=== PATIENT | female | born 1940 | race Caucasian/White ===

== ENCOUNTER 2017-05-25 18:18 | Emergency (ER) | payer MEDICARE, OTHER ==
--- NOTE | 2017-05-25 18:49 | ER PHYSICIAN DOCUMENTATION ---
Physician Documentation [facility] Name:Edyta Ortega Age:76 yrs Sex:Female :1940 Arrival Date:05/25/2017 Time:18:18 Bed1 Private MD: Jeremiah Tian Disposition: 05/25/17 18:39 Discharged to Home/Self Care. Impression: Hand Hematoma. - Condition is Good. - Discharge Instructions: HEMATOMA. - Medical Reconciliation form form. - Follow up: Private Physician; When: As needed; Reason: Continuance of care. - Problem is new. - Symptoms have improved. HPI: 05/25 18:33 This 76 yrs old Female presents to ER via Private Vehicle with complaints of jm Hand Injury - R HAND. 18:33 The patient or guardian reports pain, swelling. The complaints affect the right hand jm diffusely. Context: resulted from sat on hand. . Onset: The symptom(s)/episode began/occurred just prior to arrival. Historical: - Allergies: Codeine; - Home Meds: 1. atorvastatin oral 2. fenofibrate oral 3. Metformin Oral 4. sertraline oral 5. Aspirin Oral - PMHx: PRE DIABETES; Hypertension; DEPRESSION; - PSHx: Appendectomy; - Tetanus: < 10 years. - Ebola Screening: : Patient negative for fever greater than or equal to 101.5 degrees Fahrenheit, and additional compatible Ebola Virus Disease symptoms. - Immunization history: Pneumococcal vaccine is up to date, Flu Vaccine < 1 year. - Social history: Smoking status: Patient states was never smoker of tobacco. ROS: 18:34 MS/extremity: Positive for swelling. jm 18:34 Skin: Positive for swelling. Exam: 18:34 Constitutional: The patient appears alert, awake. jm 18:34 Musculoskeletal/extremity: Extremities: grossly normal except: noted in the right hand: swelling, ROM: intact in all extremities, Pulses: are normal with no appreciated deficits. 18:34 Skin: cellulitis, is not appreciated, injury, hematoma to the R dorsum of hand. . 18:34 Neuro: Mentation: is normal, Memory: is normal. Vital Signs: 18:35 BP 167 / 107; Pulse 88; Resp 17; Temp 98.0(TE); Pulse Ox 93% on R/A; Weight 64.41 kg; rh Height 5 ft. 5 in. (165.10 cm); Pain 2/10; 18:47 BP 145 / 88; rh 18:35 Body Mass Index 23.63 (64.41 kg, 165.10 cm) rh MDM: 18:20 Patient medically screened. laila 18:38 Differential diagnosis: contusion, hematoma. Data reviewed: vital signs, nurses notes, jm radiologic studies, and as a result, I will discharge patient. Test interpretation: by ED physician or midlevel provider: plain radiologic studies. Counseling: I had a detailed discussion with the patient and/or guardian regarding: the historical points, exam findings, and any diagnostic results supporting the discharge/admit diagnosis. ED course: Pt w large hand hematoma but no fx. WILFREDO wrap placed around the hematoma. . 05/25 21:59 Order name: HAND; [address] [place] [id number] EDNY 05/25 18:31 Order name: ORTHO: Ice Pack; Complete Time: 18:31 rh Dispensed Medications: No medications were administered Signatures: Jeremiah Mo MD MD jm Hofsess, Rachel
--- NOTE | 2017-05-25 18:49 | ER NURSING DOCUMENTATION ---
Nurse's Notes [facility] Name:Edyta Ortega Age:76 yrs Sex:Female :1940 Arrival Date:05/25/2017 Time:18:18 Bed1 Private MD: Diagnosis:Hand Hematoma Presentation: 05/25 18:21 Transition of care: patient was not received from another setting of care. Notified ED nf Physician of patient's arrival and CC Chepe Beckham notified. 18:21 Acuity: OLGA 4 nf 18:21 Method Of Arrival: Private Vehicle nf 18:32 Presenting complaint: Patient states: Pt's sat on her hand, her hand was rh resting on the arm of a chair. Triage Assessment: 18:34 General: Appears in no apparent distress, Behavior is cooperative. Pain: Complains of rh pain in dorsum of right hand. Musculoskeletal: Circulation, motion, and sensation intact Range of motion intact in all extremities. Injury Description: HEMATOMA TO THE RIGHT HAND. Historical: - Allergies: Codeine; - Home Meds: 1. atorvastatin oral 2. fenofibrate oral 3. Metformin Oral 4. sertraline oral 5. Aspirin Oral - PMHx: PRE DIABETES; Hypertension; DEPRESSION; - PSHx: Appendectomy; - Tetanus: < 10 years. - Ebola Screening: : Patient negative for fever greater than or equal to 101.5 degrees Fahrenheit, and additional compatible Ebola Virus Disease symptoms. - Immunization history: Pneumococcal vaccine is up to date, Flu Vaccine < 1 year. - Social history: Smoking status: Patient states was never smoker of tobacco. Screenin:35 Infectious Disease Risk None. Abuse screen: Denies threats or abuse. Denies injuries rh from another. Nutritional screening: No deficits noted. Assessment: 18:35 See Triage Assessment done by same RN. rh Vital Signs: 18:35 BP 167 / 107; Pulse 88; Resp 17; Temp 98.0(TE); Pulse Ox 93% on R/A; Weight 64.41 kg; rh Height 5 ft. 5 in. (165.10 cm); Pain 2/10; 18:47 BP 145 / 88; rh 18:35 Body Mass Index 23.63 (64.41 kg, 165.10 cm) rh ED Course: 18:19 Patient arrived in ED. ds 18:20 Jeremiah Mo MD is Attending Physician. jm 18:21 Triage completed. nf 18:28 Notified ED Physician of patient's arrival and chief complaint. Dr. Mo notified. Affected limb iced. Affected limb elevated. 18:31 Jimena Dudley is Primary Nurse. 18:36 Valuables Remains with patient Patient has correct armband on for positive rh identification. Bed in low position. Call light in reach. Administered Medications: No medications were administered Outcome: 18:39 Discharge ordered by . 18:47 Discharged to home ambulatory. 18:47 Condition: stable 18:47 Discharge Assessment: Patient awake, alert and oriented x 3. No cognitive and/or functional deficits noted. Patient verbalized understanding of disposition instructions. 18:47 Discharge instructions given to patient, Instructed on discharge instructions, follow up and referral plans. [facility] 18:49 Patient left the ED. 05/26 19:24 Discharge F/U Call: Unable to reach: no answer [email or web address] Signatures: Ana Landers RN RN nf Srot, Polly, Reg Reg Jeremiah Huddleston MD MD jm Kruger, Meg RN RN mk2 Jimena Dudley
--- NOTE | 2017-05-25 20:06 | RADIOLOGY REPORT ---
Three views of the left hand demonstrate no displaced fracture or dislocation. Scattered degenerative joint disease is noted. IMPRESSION: No displaced injury is identified. If clinically indicated, further evaluation and/or follow-up may be of benefit. [facility]
== END 2017-05-25 18:49 | disposition home or self-care (01) ==
LOC: ER 18:18
DX: S60.221A Contusion of right hand, initial encounter (principal); W22.8XXA Striking against or struck by other objects, initial encounter; I10 Essential (primary) hypertension; Z79.899 Other long term (current) drug therapy
CPT/HCPCS: 73130; 99281; 99283